=== PATIENT | female | born 1970 | race Caucasian/White ===

== ENCOUNTER 2017-09-16 10:12 | Emergency (ER) | payer BC, OTHER ==
[~2017-09-16] VITALS: Ht 165.1 cm; Wt 115.3 kg
[2017-09-16 10:20] VITALS: BP 172/90; PULSE 82; TEMP 36.8; O2SAT 93; Ht 165.1 cm; Wt 115.3 kg
[2017-09-16] MEDS ORDERED: PROP60CA5 PO (10:32)
[2017-09-16] MEDS ORDERED: XYLOCAINE 1%/SOD BICARB 20 ML VIAL INFIL ONE (10:45)
--- NOTE | 2017-09-16 11:45 | EMERGENCY ROOM VISIT NOTE ---
ED Visit Note First contact with patient: 10:24 CHIEF COMPLAINT: Left thumb laceration HISTORY OF PRESENT ILLNESS: This 47-year-old female patient presents the ER with chief complaint of a laceration to her left thumb. The patient states that she was cutting cauliflower and the knife slipped and cut her left thumb. The patient is right-hand dominant. The patient's tetanus is up-to-date. The patient is able to move her finger without difficulty. The patient does admit to some numbness on the tip of her finger. The patient is not on any blood thinners. REVIEW OF SYSTEMS: 6 system review was performed and was negative unless stated otherwise in history of present illness. PMH: The patient is healthy; peripheral neuropathy. See chronic problem list. SOCIAL HISTORY: Patient lives with her family. PHYSICAL EXAM: Vital Signs: Were reviewed Reviewed Nurse's notes. GENERAL: 47- year-old white female appears in no acute distress. MENTAL Status: Alert and oriented 3.: LEFT THUMB: There is a 2 cm long laceration on the palmar aspect of the proximal phalanx. The edges gape apart with traction. There is no foreign material in the wound and it looks clean. There is no bleeding. No deep structures such as tendons or nerves are seen in the base of the wound. Extension of the finger is full and strong. EMERGENCY DEPARTMENT COURSE: The patient was evaluated. Wound Repair: Was performed by the PA student under my direct supervision. Sacral Complexity: Basic. Verbal consent was obtained after the risks and benefits were explained, including but not limited to bleeding, scarring, infection, pain, and bone/joint /nerve damage. The skin was prepped with betadine and a sterile field set. The wound was anesthetized with 4.8 ml of 1% buffered lidocaine. With direct pressure the bleeding subsided. Copious irrigation was performed using sterile saline. The wound was explored for foreign bodies and none found. Debridement was not performed. The wound edges were approximated using 5-0 Ethilon with 5 simple interrupted sutures. Hemostasis and excellent approximation was achieved. Antibacterial ointment and a sterile dressing applied. Detailed wound care instructions and signs and symptoms of infection reviewed with the patient. No complications and the patient tolerated the procedure well. DIAGNOSIS: 2 cm left thumb laceration DISCHARGE INSTRUCTIONS & TREATMENT: Keep wound clean and dry. No water on the area for 12-24 hrs then no soaking until sutures removed. Do not allow any crusting or dried blood to accumulate on sutures. If this occurs, use a 1:1 solution of hydrogen peroxide/water on a Q-tip to clean the wound. Use an antibiotic ointment for 3-4 days, then let wound dry. Suture removal in 8-10 days. Follow up sooner for any signs of infection (increasing redness, swelling , drainage). Ice and elevate for swelling and pain. Tylenol 650 mg every 6 hrs for pain. Current/Historical Medications Scheduled Propranolol Hcl (Inderal La), 60 MG PO BID Allergies Coded Allergies: No Known Allergies (Unverified , 09/16/17) Vital Signs Date Time Temp Pulse Resp B/P (MAP) Pulse Ox O2 Delivery O2 Flow Rate FiO2 09/16/17 10:20 36.8 82 20 172/90 93 Room Air Departure Information Referrals Andrey Boyd M.D. (PCP) Patient Instructions My [facility]
== END 2017-09-16 11:56 | disposition home or self-care (01) ==
LOC: C.EDB 10:14 → C.EDA 11:56
DX: S61.012A Laceration without foreign body of left thumb without damage to nail, initial encounter (principal); W26.0XXA Contact with knife, initial encounter; Y93.G3 Activity, cooking and baking; G62.9 Polyneuropathy, unspecified

== ENCOUNTER → 2018-01-05 | Outpatient (CLI) | payer OTHER ==
[~2018-01-05] MED LIST: PROP60CA26 PO
[2018-01-05 16:51] LABS: BASO % 0.4 %; BASO ABS # 0.03 K/uL (0-0.2); EOS % 3.5 %; EOS ABS # 0.29 K/uL (0-0.5); HEMATOCRIT 46.4 % (37-47); HEMOGLOBIN 16.5 g/dL (12.0-16.0); IG# 0.03 K/uL (0.00-0.02); LYMPH % 43.1 %; LYMPH ABS # 3.57 K/uL (1.2-3.4); MEAN CELL VOLUME 88.5 fL (80-100); MEAN CORPUSCULAR HEMOGLOBIN 31.5 pg (25-34); MEAN CORPUSCULAR HGB CONC 35.6 g/dl (32-36); MEAN PLATELET VOLUME 10.5 fL (7.4-10.4); MONO % 6.2 %; MONO ABS # 0.51 K/uL (0.11-0.59); NEUT % 46.4 %; NEUT ABS # 3.85 K/uL (1.4-6.5); PLATELET COUNT 268 K/uL (130-400); RED CELL DISTRIBUTION WIDTH CV 13.8 % (11.5-14.5); RED CELL DISTRIBUTION WIDTH SD 44.8 fL (36.4-46.3); WHITE BLOOD COUNT 8.28 K/uL (4.8-10.8)
[2018-01-05 17:00] LABS: ALBUMIN 4.2 gm/dl (3.4-5.0); ALT/SGPT 51 U/L (12-78); AST/SGOT 25 U/L (15-37); BLOOD UREA NITROGEN 10 mg/dl (7-18); CALCIUM 9.1 mg/dl (8.5-10.1); CARBON DIOXIDE 26 mmol/L (21-32); CREATININE 0.59 mg/dl (0.60-1.20); GLUCOSE 87 mg/dl (70-99); SODIUM 139 mmol/L (136-145)
[2018-01-05 17:08] LABS: ALKALINE PHOSPHATASE 101 U/L (45-117); TOTAL PROTEIN 7.4 gm/dl (6.4-8.2); TRANSFERRIN 256 mg/dl (200-360)
[2018-01-06 01:10] LABS: RAPID PLASMA REAGIN NONREACTIVE (NONREACT)
== END | disposition home or self-care (01) ==
LOC: C.LABBC 12:26
PROVIDERS: ATTEND Psychiatry & Neurology Neurology
DX: R42 Dizziness and giddiness (principal); M62.838 Other muscle spasm; H54.7 Unspecified visual loss; G62.9 Polyneuropathy, unspecified; G43.009 Migraine without aura, not intractable, without status migrainosus; R29.898 Other symptoms and signs involving the musculoskeletal system

== ENCOUNTER → 2018-04-01 | Outpatient (CLI) | payer OTHER ==
[~2018-04-01] MED LIST changes: +GADAVIST IV PRN
--- NOTE | 2018-04-01 12:53 | DIAGNOSTIC IMAGING REPORT ---
BRAIN COMBO CLINICAL HISTORY: G43.109 Classic migraine with auraR68.89 Light [id number] mental status change COMPARISON STUDY: 05/09/2013 TECHNIQUE: Utilizing a 1.5 Tamar magnet and dedicated coil, multiplanar, multiecho imaging of the brain was performed pre and postcontrast administration. IV administration of 8.5 mL of Gadavist contrast was uneventful. FINDINGS: Diffusion images are negative for an acute ischemic event. The ventricular system is midline. Signal characteristics are unremarkable. Sella and parasellar region are within normal limits. Internal artery canals are symmetric. IMPRESSION: Negative study. No change from the prior exam. The above report was generated using voice recognition software. It may contain grammatical, syntax or spelling errors. Electronically signed by: Ramiro Scott M.D. 04/01/2018 12:52 PM Dictated Date/Time: 04/01/2018 12:48 PM
== END | disposition home or self-care (01) ==
LOC: C.MRI 11:22
PROVIDERS: ATTEND Psychiatry & Neurology Neurology
DX: G43.109 Migraine with aura, not intractable, without status migrainosus (principal); R29.898 Other symptoms and signs involving the musculoskeletal system; R68.89 Other general symptoms and signs; H54.7 Unspecified visual loss

== ENCOUNTER → 2018-04-18 | Outpatient (CLI) | payer BC, OTHER ==
[~2018-04-18] MED LIST changes: -GADAVIST IV PRN
[2018-04-18 17:26] LABS: BLOOD UREA NITROGEN 14 mg/dl (7-18); CALCIUM 8.7 mg/dl (8.5-10.1); CARBON DIOXIDE 25 mmol/L (21-32); CREATININE 0.57 mg/dl (0.60-1.20); GLUCOSE 114 mg/dl (70-99); POTASSIUM 4.3 mmol/L (3.5-5.1); SODIUM 137 mmol/L (136-145)
== END | disposition home or self-care (01) ==
LOC: C.LABPVFM 12:59
PROVIDERS: ATTEND Psychiatry & Neurology Neurology
DX: Z00.00 Encounter for general adult medical examination without abnormal findings (principal); E55.9 Vitamin D deficiency, unspecified